=== PATIENT | male | born 1965 | race Two or more races ===

== ENCOUNTER 2020-09-27 13:36 | Outpatient (REF) | payer OTHER, SELFPAY | END 2020-09-27 13:37 | disposition home or self-care (01) | LOC: HO.LAB 13:36 | PROVIDERS: PCP Internal Medicine; Visit Provider Internal Medicine | DX: Z20.828 Contact with and (suspected) exposure to other viral communicable diseases (principal) | CPT/HCPCS: U0003 ==

== ENCOUNTER 2020-10-31 03:49 | Emergency (ER) | payer OTHER, SELFPAY ==
[2020-10-31 03:55] VITALS: BP 133/95; PULSE 82; RESP 16; TEMP 37.1; O2SAT 97; BMI 27.1
--- NOTE | 2020-10-31 04:19 | ED.GENADULT ---
HPI - General Adult General Chief complaint: General Medical Stated complaint: Flu? Time Seen by Provider: 10/31/20 04:09 History of Present Illness HPI narrative: Patient is a 55-year-old male positive diarrhea positive generalized malaise positive congestion. Patient took a dose of Tylenol. Subsequently at work patient was told to go home and get tested for coronavirus. Patient denies any coughing. No change in smell or taste. 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 No history of diabetes, hypertension, mi, family history of GA. Related Data Allergies Allergy/AdvReac Type Severity Reaction Status Date / Time aspirin [ASA] Allergy Unknown HIVES Verified 10/31/20 03:55 Review of Systems Review of Systems: Constitutional: No Weight loss, No Fever, No Chills, No Night Sweats, No Fatigue, No Malaise ENT/Mouth: No Hearing loss, No Ear Pain, No Nasal Congestion, No Sinus Pain, No Hoarseness, No sore throat, No Rhinorrhea, No Swallowing Difficulty Eyes: No Eye Pain, No Swelling, No Redness, No Foreign Body, No Discharge, No Vision Changes Cardiovascular: No Chest Pain, No SOB, No Dyspnea on Exertion, No Orthopnea, No Edema, No Palpitations Respiratory: No Cough, No Sputum, No Wheezing, No Smoke Exposure, No Dyspnea Gastrointestinal: No Nausea, No Vomiting, Positive Diarrhea, No Constipation, No abdominal Pain, No Hematochezia, No Melena Genitourinary: no irregular bleeding, No Dysuria, No Urinary Frequency, No Hematuria, No Urinary Incontinence, No Urgency, No Flank Pain, No Urinary Flow Changes, No Hesitancy Musculoskeletal: No joint pain, No Myalgias, No Joint Swelling Skin: No Skin Lesions, No rash Neuro: No Weakness, No Numbness, No Paresthesias, No Loss of Consciousness, No Dizziness, No Headache Psych: No Anxiety/Panic, No Depression, No SI/HI/AH/VH, No Social Issues, Heme/Lymph: No Bruising, No Bleeding,No Lymphadenopathy Endocrine: No Polyuria, No Polydipsia, No Temperature Intolerance PMFSH Past Medical History Attestation statement: The following information was validated with the patient. Medical History No known health problems Social History Social History Advance Directives: No Physical Exam Vital Signs: Vital Signs: Last Vital Signs Temp 98.7 F 10/31/20 03:55 Pulse 82 10/31/20 03:55 Resp 16 10/31/20 03:55 BP 133/95 H 10/31/20 03:55 Pulse Ox 97 10/31/20 03:55 Body Mass Index 27.1 Appearance: Alert. Oriented X3. No acute distress. Eyes: Pupils equal, round and reactive to light. ENT: Pharynx normal. Neck: Normal inspection. Neck supple. No lymph nodes noted. No crepitus CVS: Normal heart rate and rhythm. Pulses normal. Normal S1 and S2 Respiratory: No respiratory distress. Breath sounds normal. No Wheezing. No rales Abdomen: Soft and nontender. No rigidity. No distention. good BS x4 Skin: Skin warm and dry. Normal skin color. Normal skin turgor. Extremities: No lower extremity edema. Neurovascular intact to all extremities. No Lacerations. No Rash Neuro: Oriented X 3. No motor deficit. No sensory deficit. Moving all extermities. No slurred speech Medical Decision Making MDM Narrative Medical decision making narrative: patient well-appearing no acute distress O2 sat is 97% on room air. Lungs are clear. Will discharge patient home a coronavirus test was sent. Will ask patient to follow strict home quarantine until all symptom has resolved For least 24 hours. Currently stable condition. Discharge Plan Discharge Clinical Impression: Acute upper respiratory infection, COVID-19 Patient Disposition: Home, Self-Care Instructions: COVID-19 (Coronavirus Disease 2019) (ED), Upper Respiratory Infection (ED) Additional Instructions: The risk of Coronavirus 19 exists. Please closely follow-up on an outpatient basis. Please follow strict home quarantine until all symptoms has resolved for at least 24 hours. A coronavirus test was sent in her behalf. Referrals: Physician,Unknown [Primary Care Provider] - 2 days
== END 2020-10-31 04:31 | disposition home or self-care (01) ==
PROVIDERS: Emergency Provider Emergency Medicine Emergency Medical Services
DX: U07.1 COVID-19 (principal)
CPT/HCPCS: 99283; U0003

== ENCOUNTER 2021-11-26 09:10 | Outpatient (REF) | payer OTHER, SELFPAY ==
[2021-11-26 09:52] LABS: COVID-19 Test Negative (Negative); IDNOW Serial# 55D5AD1C
== END 2021-11-26 09:11 | disposition home or self-care (01) ==
LOC: HO.LAB 09:10
PROVIDERS: Visit Provider Internal Medicine
DX: Z20.822 Contact with and (suspected) exposure to COVID-19 (principal)
CPT/HCPCS: 36415; 87635; C9803

== ENCOUNTER 2024-10-21 03:41 | Emergency (ER) | payer OTHER, SELFPAY ==
[2024-10-21 03:43] VITALS: BP 126/76; PULSE 67; RESP 18; TEMP 37.1; O2SAT 100; BMI 20.8
[2024-10-21] MEDS: cephALEXin 500 MG CAPSULE PO (03:58)
[2024-10-21] MEDS: predniSONE 20 MG TABLET 40 MG PO (03:58)
--- NOTE | 2024-10-21 04:01 | ED.EXTPRO ---
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 he has no numbness or weakness. he denies trauma, injections, fevers. He notes tonight it was too painful to work MD Complaint: joint swelling Onset (ago): day(s) (few) Pain Consistency: constant Location: right and upper extremity Quality: aching Radiation: none Relieving factors: immobilization Exacerbating factors: range of motion and palpation Associated symptoms: denies other symptoms Context: other (overuse) Related Data Previous Rx's ?Medication ?Instructions ?Recorded cephalexin 500 mg capsule 500 mg PO QID 7 days #28 caps 10/21/24 prednisone 20 mg tablet 40 mg (2 x 20 mg) PO DAILY 4 days 10/21/24 #8 tabs Allergies Allergy/AdvReac Type Severity Reaction Status Date / Time aspirin [ASA] Allergy Unknown HIVES Verified 10/21/24 03:45 Review of Systems Review of Systems: Constitutional : No Fever, No Chills ENT/Mouth : No Ear Pain, No Hoarseness, No sore throat Eyes: No Eye Pain, No Swelling, No Redness, No Foreign Body Cardiovascular : No Chest Pain, No SOB Respiratory : No Cough, No Dyspnea Gastrointestinal : No Nausea, No Vomiting, No Diarrhea, No abdominal Pain Genitourinary : No Dysuria, No Hematuria Musculoskeletal : positive joint pain, No Myalgias, pos Joint Swelling Skin : No Skin lacerations, No rash Neuro : No Weakness, No Numbness, No Loss of Consciousness, No Dizziness, No Headache All other systems reviewed and are negative PMFSH Past Medical History Attestation statement: The following information was validated with the patient. Source: old records reviewed Medical History No known health problems Social History Social History Unable to assess alcohol history related to: Unknown Use of substances other than those prescribed or required for medical reasons: No Do you have a plan to hurt others: No Plan Physical Exam Vital Signs: Vital Signs: Last Vital Signs Temp 98.8 F 10/21/24 03:43 Pulse 67 10/21/24 03:43 Resp 18 10/21/24 03:43 BP 126/76 10/21/24 03:43 Pulse Ox 100 10/21/24 03:43 O2 Del Method Room Air 10/21/24 03:43 BMI result Body Mass Index 20.8 Appearance: Alert. Oriented X3. No acute distress. Eyes: Pupils equal, round and reactive to light. ENT: Pharynx normal. Neck: Normal inspection. Neck supple. CVS: Normal heart rate and rhythm. Pulses normal. Respiratory: No respiratory distress. Breath sounds normal. Abdomen: Soft and nontender. Skin: Skin warm and dry. Normal skin color. Normal skin turgor. Extremities: No lower extremity edema. R hand NV intact, mild swelling near wrist with mild erythema but no warmth - no joint effusion. + idris test. Neuro: Oriented X 3. No motor deficit. No sensory deficit. Medications Administered Discontinued Medications Generic Name Dose Route Start Last Admin Trade Name Freq PRN Reason Stop Dose Admin Cephalexin HCl 500 mg 10/21/24 03:54 10/21/24 03:58 Cephalexin 500 Mg Capsule PO 10/21/24 03:55 500 mg ONCE ONE Administration Prednisone 40 mg 10/21/24 03:54 10/21/24 03:58 Prednisone 20 Mg Tablet PO 10/21/24 03:55 40 mg ONCE ONE Administration Medical Decision Making Medical Decision Making MDM Narrative: 59 yo male no sig PMH R hand dominant here with R wrist pain and swelling there is mild erythema at this time will place in splint - could be gout (less likely), early cellulitis (PO cephalexin ordered), more likely tendonitis. Splint ordered. Reasons to return given Differential Diagnosis Differential Diagnoses: The differential diagnosis associated with the presentation includes tendonitis, gout, skin infection Prescription Management I considered prescription management with: Pain Medication and Antibiotic Procedures Orthopedic Splinting/Casting Injury #1: Side: right Upper Extremity Injury Location: wrist Upper Extremity Immobilizer: wrist splint Discharge Plan Discharge Clinical Impression: Tendonitis Patient Disposition: Home, Self-Care Instructions: Tendinitis (ED) Additional Instructions: return for any worsening symptoms - increased redness, swelling, numbness, weakness wear splint for 10 days finish medications if your symptoms worsen you will need an ultrasound please return Prescriptions: New cephalexin 500 mg capsule 500 mg PO QID 7 Days Qty: 28 0RF prednisone 20 mg tablet 40 mg PO DAILY 4 Days Qty: 8 0RF Stand Alone Forms: Work/School Release Print Language: [place] Islander
[2024-10-21 04:11] VITALS: BP 126/76; PULSE 67; RESP 18; TEMP 37.1; O2SAT 100
== END 2024-10-21 04:15 | disposition home or self-care (01) ==
LOC: HO.ED 04:12
PROVIDERS: Emergency Provider Emergency Medicine; PCP Internal Medicine
DX: M25.431 Effusion, right wrist (principal); M65.241 Calcific tendinitis, right hand; M25.531 Pain in right wrist
CPT/HCPCS: 29125; 99283; 99284

== ENCOUNTER 2025-11-25 08:45 | Emergency (ER) | payer OTHER, SELFPAY ==
--- NOTE | ~2025-11-25 | XR_ITS ---
EXAMINATION: XR ELBOW 3 VIEWS RIGHT, XR ELBOW 3 VIEWS LEFT HISTORY: fall COMPARISON: Comparison is made with the prior examination of the left elbow dated 01/24/2017. FINDINGS: Six views of the bilateral elbows are submitted. Osseous mineralization is normal. There is no fracture or dislocation. The joint spaces are preserved. The soft tissues are unremarkable. There is no joint effusion. XR/XR elbow RT min 3V IMPRESSION: Unremarkable examination of the bilateral elbows. Electronically signed by: Noel Quintanilla MD 11/25/2025 09:31 AM [facility]
--- NOTE | ~2025-11-25 | CT_ITS ---
EXAMINATION: CT CERVICAL SPINE WITHOUT CONTRAST CLINICAL INFORMATION: Fall with head strike. COMPARISON: None available. TECHNIQUE: Spiral CT imaging of the cervical spine performed in axial plane without contrast. Multiplanar reformatted images were constructed from the axial data set. This CT examination was performed using dose optimization techniques as appropriate, variously including the following: *Automated exposure control *Adjustment of mA and/or kV according to patient size (this includes techniques or standardized protocols for targeted exams where dose is matched to indication/reason for exam; i.e. extremities or head) *Use of iterative reconstruction technique FINDINGS: CORONAL ALIGNMENT: -There is a minimal left convex scoliosis, apex at C4. SAGITTAL ALIGNMENT: -Normal lordosis. No subluxations. Normal sagittal alignment. C1-C2 AND CRANIOCERVICAL JUNCTION: -Intact and normally aligned. VERTEBRAL BODIES AND FACETS: -There are no fractures, compression deformities, or suspicious bone lesions. There is no evidence of traumatic subluxation. -Normal facet alignment bilaterally. No significant facet arthrosis. DISCS: -Moderate disc degeneration present at C5-6 and C6-7. Disc spaces otherwise preserved. CENTRAL CANAL: -No evidence of high-grade central canal narrowing or large disc herniation allowing for modality limitations. PREVERTEBRAL AND PARAVERTEBRAL SOFT TISSUES: -There is no prevertebral or paravertebral soft tissue swelling or edema. No abnormal fluid collection. -Mild carotid bulb calcifications bilaterally. -No mass or abnormal lymph nodes within the neck. -Normal-appearing thyroid. LUNG APICES: -Emphysematous changes in the apices with bullous changes right greater than left. No pneumothorax. CT/CT cervical spine wo IV con IMPRESSION: 1. No CT evidence of acute cervical spine fracture or injury. 2. Emphysematous changes in the lung apices. Electronically signed by: Karl Conklin MD 11/25/2025 09:41 AM [facility]
--- NOTE | ~2025-11-25 | CT_ITS ---
EXAMINATION: CT HEAD WITHOUT IV CONTRAST HISTORY: fall with head strike. TECHNIQUE: Unenhanced helical CT of the head was performed per standard departmental protocol. Coronal and sagittal reformats of the head were also evaluated. One or more of the following techniques was used for dose reduction: Automated exposure control, adjustment of the mA and/or kV according to patient size, use of iterative reconstruction technique. DLP: 663 mGy-cm COMPARISON: Comparison is made with the prior examination dated 07/15/2015. FINDINGS: BRAIN: The patient is status post left suboccipital craniotomy. Encephalomalacia in the left cerebellum may be postsurgical in nature. They/white differentiation is otherwise normal. There is no mass effect or midline shift. No intra- or extra-axial fluid collections are identified. SINUSES: The visualized paranasal sinuses are clear. The mastoid air cells and middle ear cavities are well pneumatized. ORBITS: The visualized orbits are unremarkable. BONES/SOFT TISSUES: The extracranial soft tissues are unremarkable. The calvarium is intact. No suspicious lytic or sclerotic lesions. CT/CT head/brain wo IV con IMPRESSION: No evidence of intracranial hemorrhage. Electronically signed by: Noel Quintanilla MD 11/25/2025 09:38 AM EST
--- NOTE | ~2025-11-25 | XR_ITS ---
EXAMINATION: XR ELBOW 3 VIEWS RIGHT, XR ELBOW 3 VIEWS LEFT HISTORY: fall COMPARISON: Comparison is made with the prior examination of the left elbow dated 01/24/2017. FINDINGS: Six views of the bilateral elbows are submitted. Osseous mineralization is normal. There is no fracture or dislocation. The joint spaces are preserved. The soft tissues are unremarkable. There is no joint effusion. XR/XR elbow LT min 3V IMPRESSION: Unremarkable examination of the bilateral elbows. Electronically signed by: Noel Quintanilla MD 11/25/2025 09:31 AM [facility]
[2025-11-25 08:51] VITALS: BP 112/73; PULSE 82; RESP 16; TEMP 36.8; O2SAT 99; BMI 21.3
--- NOTE | 2025-11-25 09:40 | ED_ITS ---
HPI - Fall General Chief Complaint: Fall Stated Complaint: fell t-1, head/ elbow pain Time Seen by Provider: 11/25/25 09:08 Source: patient Mode of arrival: ambulatory Limitations: no limitations History of Present Illness ED Provider: TOOTIE NUNEZ PA-C HPI Narrative: 60 year old male presents to the ED today for evaluation s/p slip and fall on ice yesterday. He reports falling back, striking the back of his head on a ramp. No LOC, no thinners. Reports landing on his back/bilateral elbows. He was able to stand and ambulate afterwards. Admits to nausea without vomiting this morning. At present, complains of a mild headache and bilateral elbow pain. Denies dizziness, chest pain, shortness of breath, back pain, numbness/tingling/weakness of the lower extremities, saddle anesthesia, bowel or bladder incontinence or retention. Related Data Previous Rx's ?Medication ?Instructions ?Recorded cephalexin 500 mg capsule 500 mg PO QID 7 days #28 cap s 10/21/24 prednisone 20 mg tablet 40 mg (2 x 20 mg) PO DAILY 4 days 10/21/24 #8 tabs Allergies Allergy/AdvReac Type Severity Reaction Status Date / Time aspirin (ASA) Allergy Unknown HIVES Verified 10/21/24 03:45 some antibiotics Allergy Unknown Uncoded 11/25/25 08:51 Review of Systems Review of Systems: Yes all other systems are reviewed and are negative PMFSH Past Medical History Attestation statement: The following information was validated with the patient. Source: old records reviewed and nursing notes reviewed Medical History No known health problems Social History Social History Advance Directives: No Advance Directives Information Provided: Yes Physical Exam Vital Signs: Vital Signs: Last Vital Signs Temp 98.2 F 11/25/25 08:51 Pulse 82 11/25/25 08:51 Resp 16 11/25/25 08:51 BP 112/73 11/25/25 08:51 Pulse Ox 99 11/25/25 08:51 O2 Del Method Room Air 11/25/25 08:51 BMI result Body Mass Index 21.3 vital signs stable General: Well appearing, in no acute distress. Skin: Warm, dry, intact. No rashes or lesions. Head: Normocephalic, atraumatic. no raccoon eyes or battles sign. no palpable hematoma or skull fracture. EENT: Hearing is intact b/l. Conjunctiva clear. PERRLA. EOM intact. Moist mucous membranes.? Neck: no midline spinous tenderness or step off deformity, FROM intact throughout Cardiac: Chest wall symmetric. RRR Lungs: Normal respiratory effort without accessory muscle use. CTA bilaterally. No rales, rhonchi, or wheezes.? Abdomen: Soft, non-tender, non-distended. No rebound tenderness or guarding. Positive BS x4. Back: No midline spinous or paraspinal tenderness. No step off deformity. Ext: Upper and lower extremities atraumatic, without tenderness, deformity, swelling or erythema, FROM intact to all extremities Neuro: AOx3. Normal speech. NIH 0. Strength 5/5 intact throughout. No saddle anesthesia. Sensation intact to light touch. NV intact distally. Ambulating with steady gait Course Course Course Narrative: ct head/ c spine unremarkable. xr b/l elbows without fracture. Discussed work up results with patient. tylenol given in ED. Advised concussion protocol along with tylenol/motrin at home. Patient has remained stable throughout ED visit today. Discussed worrisome signs and symptoms and when to return to the ED. All questions answered at this time. Patient is agreeable with disposition and stable for discharge. Medical Decision Making Medical Decision Making [facility] Narrative: 60 year old male presents to the ED today for evaluation s/p slip and fall on ice yesterday. Differential diagnosis includes concussion, closed head injury, ICH, cervical MSK sprain/strain, fracture, elbow fracture, contusion Plan for imaging. Tylenol ordered for pain. Plan for re-eval. Differential Diagnosis Differential Diagnoses: The differential diagnosis associated with the presentation includes as above. Admission/Observation not indicated. Independent Interpretation I performed an independent interpretation of an: CT Scan Interpretation: ct head/brain without bleed or mass ct cervical spine without fracture xr b/l elbows without fracture Radiology Impression Discussion of test interpretation with radiology: I have reviewed the radiolo [facility]'s reading. Radiologist Impression: Procedure(s): XR elbow LT min 3V Accession Number(s): [id number] cc: Dain Pitts MD; Tootie Nunez~ Reason for Exam: fall EXAMINATION: XR ELBOW 3 VIEWS RIGHT, XR ELBOW 3 VIEWS LEFT HISTORY: fall COMPARISON: Comparison is made with the prior examination of the left elbow dated 01/24/2017. FINDINGS: Six views of the bilateral elbows are submitted. Osseous mineralization is normal. There is no fracture or dislocation. The joint spaces are preserved. The soft tissues are unremarkable. There is no joint effusion. XR/XR elbow LT min 3V IMPRESSION: Unremarkable examination of the bilateral elbows. Electronically signed by: Noel Quintanilla MD 11/25/2025 09:31 AM EST RP Date of Service: 11/25/25 Procedure(s): XR elbow RT min 3V Accession Number(s): [id number] cc: Dain Pitts MD; Tootie Nunez~ Reason for Exam: fall EXAMINATION: XR ELBOW 3 VIEWS RIGHT, XR ELBOW 3 VIEWS LEFT HISTORY: fall COMPARISON: Comparison is made with the prior examination of the left elbow dated 01/24/2017. FINDINGS: Six views of the bilateral elbows are submitted. Osseous mineralization is normal. There is no fracture or dislocation. The joint spaces are preserved. The soft tissues are unremarkable. There is no joint effusion. XR/XR elbow RT min 3V IMPRESSION: Unremarkable examination of the bilateral elbows. Electronically signed by: Noel Quintanilla MD 11/25/2025 09:31 AM EST RP External Record Review External record reviewed: Inpatient record Prescription Management I considered prescription management with: Pain Medication Social Determinants Patient?s care significantly limited by Social Determinants of Health including: Other Social Determinant of Health Critical Care Time Critical Care Time Critical Care Time: No Discharge Plan Discharge Clinical Impression: Fall from slipping on ice Patient Disposition: Home, Self-Care Instructions: Concussion (ED) Additional Instructions: You were evaluated in the ED today following a fall. Your imaging is reassuring. You may have a mild concussion. See home care instructions regarding concussion protocol. Treatment for this is brain rest. Please limit screen time (i.e phone, tv, etc.) Make sure you are staying hydrated. Lay down to relax in a dark quiet room. Avoid sports until cleared by your primary doctor. I recommend you take 600mg ibuprofen every 6 hours or tylenol 650mg every 6 hours as needed for pain. If needed, you can alternate these medications so that you take one medication every 3 hours. For example, at noon take ibuprofen, then at 3pm take tylenol, then at 6pm take ibuprofen. Follow up with your primary doctor as needed. As discussed, return to the ED with any new or worsening symptoms such as intractable headache, vomiting, lethargy, worsening confusion, etc. In the case of an emergency call 911. Prescriptions: No Action cephalexin 500 mg capsule 500 mg PO QID 7 Days Qty: 28 0RF prednisone 20 mg tablet 40 mg PO DAILY 4 Days Qty: 8 0RF Referrals: Dain Pitts MD [Primary Care Provider, Internal Medicine] Print Language: Citizen Of [place]
--- OUTSIDE RECORDS SUMMARY | 2025-11-25 10:14 | XMS_ITS | Clinical Summary ---
Author Organization [facility] Address [address] [address] Phone Care Team Providers Care Flat Clothier Name Role Phone Dain Pitts Primary Care Provider [phone] Allergies Active Allergy Reactions Criticality Noted Date Comments Aspirin 02/24/2019 Medications valACYclovir (VALTREX) 1000 MG tablet Take 1 tablet (1,000 mg total) by mouth 3 (three) times a day. 21 tablet 9 Active Additional Information Patient not taking.Reported on 05/17/2019 cyclobenzaprine (FLEXERIL) 10 MG tablet Take 1 tablet (10 mg total) by mouth 3 (three) times a day as needed. 15 tablet 1 Active Active Problems No known active problems Social History Tobacco Use Types Packs/Day Years Used Date Smoking Tobacco: Former Cigarettes Smokeless Tobacco: Never Tobacco Cessation:Counseling Given: Not Answered Alcohol Use Standard Drinks/Week Comments Not Currently 0 (1 standard drink = 0.6 oz pur e alcohol) Education Answer Date Recorded Are you interested in more education? Not on tong e 03/23/2023 Are you concerned about learning? Not on file 03/23/2023 No 03/23/2023 No 03/23/2023 Food Answer Date Recorded Within the past 6 months we worried whether our food would run out before we got money to buy more. I choose not to answer 04/25/2025 Within the past 6 months the food we bought just didn't last and we didn't have enough money to get more. I choose not to answer 04/25/2025 Residential Stability Answer Date Recor ded What is your housing situation today? I choose n ot to answer 04/25/2025 How many times have you move d in the past 12 months? I choose not to answer 04/25/2025 Paying for Meds Answer Date Recorded Do you have trouble paying for medicines? I ham[place] se not to answer 04/25/2025 Paying Utility Bills Answer Date Record ed Do you have trouble paying y our heating or electricity bill? I choose not to answer 04/25/2025 Transportation Answer Date Recorded Has the lack of transportati on kept you from medical appointments or from getting medications? No 04/25/2025 Digital Access Answer Date Recorded No 04/25/2025 No 04/25/2025 Do you have reliable internet access at home? I choose not to answer 04/25/2025 Do you have a device (e.g., phone, tablet, computer) with a working camera? I choose not to answer 04/25/2025 Intimate Partner Violence Answer Date R ecorded Are you denied basic needs s uch as food, clothing, or medical care? No 04/25/2025 In the past 12 months have y ou been in a relationship with a person who hurts, threatens, or tries to control you? No 04/25/2025 Are you denied basic needs s uch as food, clothing, or medical care? No 04/25/2025 In the past 12 months have y ou been in a relationship with a person who hurts, threatens, or tries to control you? No 04/25/2025 Sex and Gender Information Value Date Recorded Sex Assigned at Male 02/24/2019 12:46 PM EDT Legal Sex Male 9:40 PM EDT Gender Identity Male 02/24/2019 12:46 PM EDT Sexual Orientation Choose not to disclose 2018 10:09 AM EDT Last Filed Vital Signs Vital Sign Reading Time Taken Comments Blood Pressure 127/78 04/25/2025 9:57 AM EDT Pulse 57 04/25/2025 9:57 AM EDT Temperature 36.2 C (97.2 F) 04/25/2025 9:57 AM EDT Respiratory Rate 16 04/25/2025 9:57 AM EDT Oxygen Saturation 98% 04/25/2025 9:57 AM EDT Inhaled Oxygen Concentration - - Weight 63.5 kg (140 lb) 04/25/2025 6:19 AM EDT Height 180.3 cm (5' 11 ) 04/25/2025 6:19 AM EDT Body Mass Index 19.53 04/25/2025 6:19 AM EDT Plan of Treatment Health Maintenance Due Date Last Done Comments Adult Td,Tdap Booster 1966 LIPID PANEL 1966 DEPRESSION SCREENING 1978 SMOKING Hx and SMOKELESS TOB ACCO SCREENING 1979 HEPATITIS C SCREENING 1984 HIV ONE-TIME SCREENING (18-6 5 YEARS) 1984 COLOGUARD 2011 COLONOSCOPY 2011 COLORECTAL CANCER SCREENING 2011 FIT TEST 2011 FOBT 2011 SIGMOIDOSCOPY 2011 VIRTUAL COLONOSCOPY 2011 PNEUMOCOCCAL VACCINES (50+ y ears) (1 of 1 - PCV) 2016 ZOSTER VACCINES (1 of 2) 2016 INFLUENZA VACCINE (#1) 2025 COVID-19 VACCINE (1 - 2024-2 6 season) 2025 RSV VACCINE (1 - 1-dose 75+ series) 2041 HEPATITIS A VACCINES Aged Out No long er eligible based on patient's age to complete this topic HIB VACCINES Aged Out No longer eligi ble based on patient's age to complete this topic MENINGOCOCCAL VACCINES (ACWY) Aged Out No longer eligible based on patient's age to complete this topic MENINGOCOCCAL VACCINES (B) Aged Out N o longer eligible based on patient's age to complete this topic Medical Devices Not on file Insurance [employer] HMO [place] [address] [place], [place] [id number] [place] [address] [place], [place] [id number] [facility] Care Teams Flat Clothier Relationship Specialty Start Date End Date Dain Pitts DO [address] [place] [address] PCP - General Internal Medicine 02/24/25 Additional Source Comments The information contained in this document represents components of the legal health record. It is not the complete legal health record.[facility]
--- OUTSIDE RECORDS SUMMARY | 2025-11-25 10:14 | XMS_ITS | Data Portability ---
Author Organization [facility] Telehealth Patient Home Address [address] [facility] [place] [address] Assessment No assessment recorded. Plan of Treatment Reminders Order Date Submit Date Provider Last Modified By Organization Details Last Modified Time Details Appointments None recorded. Lab None recorded. Referral None recorded. Procedures None recorded. Surgeries None recorded. Imaging None recorded. Medication Orders nicotine 21 mg/24 hr daily transdermal patch 2022 023 [place] [id number], [address] [facility], [place], [address], 15:09:27 Patient TargetsNo targets recorded. Patient Instructions Encounter Date Encounter Id Patient Instructions Last Modified By Organization Details Last Modified Time 02/07/2023 [id number] smoking cessatio n counseling, greater than 3 minutes up to 10 minutes* [email or web address] Not available 02/07/2023 15:09:24 Reason for Referral None Reported. Results Created Date Observation Date Name Description Value Unit Range Abnormal Flag Note LastModifiedBy Organization Detail LastModifiedTime 11/25/2011/25/2025 imagi ng/di agnos tic resul t No observ ation record ed. [facility] (Medical Records) [address] [place], [address], 11/25/2025 09:36:12 11/25/2011/25/2025 imagi ng/di agnos tic resul t No observ ation record ed. [facility] (Medical Records) [address] [place], [address], 11/25/2025 09:37:36 11/25/2011/25/2025 imagi ng/di agnos tic resul t No observ ation record ed. [facility] (Medical Records) [address] [place], [address], 11/25/2025 09:42:54 11/25/20 25 11/25/2025 imagi ng/di agnos tic resul t No observ ation record ed. [facility] (Medical Records) [address] [place], [address], 11/25/2025 09:45:57 11/25/20 25 11/25/2025 imagi ng/di agnos tic resul t No observ ation record ed. [facility] (Medical Records) [address] [place], [address], 11/25/2025 09:46:57 Result Notes None recorded. 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 Active 2022 JADA LOUIE [address] [place] [address], [phone], [facility] 3 15:02:16 Primary malignant neoplasm of lung 61935601 Active 2022 JADA LOUIE [address] [place] [address], [phone], [facility] 3 15:02:49 Mass lesion of brain 833296763 Active 2022 JADA LOUIE [address] [place] [address], [phone], [facility] 3 15:02:59 Tobacco dependence syndrome 17011805 Active 2022 JADA LOUIE [address] [place] [address], [phone], [facility] 3 15:03:08 Alcohol dependence 39997949 Active 2022 JADA LOUIE [address] [place] [address], [phone], [facility] 3 15:03:24 Problem Notes None recorded. Procedures Surgical History Date Name Laterality Status Provider Name and Address Organization Details Recorded Time 5 Colonoscopy completed Ramón Gisselle [facility] 09/30/2025 09:52:17 Imaging Results None recorded. Procedure Notes None recorded. Medical Equipment None Reported. Allergies Allergen ID Allergen Name Allergen Category Reaction Reaction Severity Criticality Documentation Date Start Date Code Code System Note Provider Name and Address Organization Details Recorded Time 65 aspirin medicatio n hives Not available Not available 02/07/2023 1191 RxNorm Ronel stallworth [facility] 3 15:00:53 Medications Name Sig Start Date Stop Date Status Note LastModified by Organization Details LastModified Time nicotine 21 mg/24 hr daily transdermal patch Apply 1 patch every day by transdermal route for 42 days. 2022 active Not Available Not Available Not Avai lable Vitals Date Recorded Body height Body mass index (BMI) Body weight Oxygen saturation Heart rate Systolic And Diastolic Provider Name and Address Organization Details Last Updated DateTime 3 179.83 cm 25.7 kg/m2 98598.2 g 98 % 68 /min 110/68 mm[Hg] Ronel Kearns [facility] 3 15:02:18 Social History Question Answer Notes LastModified by Organizat ion Details LastModified Time Tobacco Smoking Status Former Smoker Over 20 years of smoking history Ronel stallworth [facility] 02/07/2023 15:01:19 What Was The Date Of Your Most Recent Tobacco Screening? 02/07/2023 [email or web address] Information not available 02/07/2023 Sex: Unknown Functional Status None recorded. Mental Status None recorded. Family History Nothing Reported. Medical History No medical history recorded. Past Encounters Encounter ID Performer Location Encounter Start Date Encounter Closed Date Diagnosis/Indication Diagnosis SNOMED-CT Code Diagnosis ICD10 Code Diagnosis IMO Codes Diagnosis Note [id number] Dain Pitts DO [facility] [address] [facility] [address] 02/07/2023 14:54:38 02/07/2023 17:06:12 Primary malignant neoplasm of cerebrum 00406006 C71.0 has f/u with oncology tomorrow with Dr. Persaud (through [facility]) Primary ma lignant neoplasm of lung 89555099 C34.[address] 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)has PET scan Alcohol dependence 49914 003 F10.20 the patient reports that he hasn't been smoking or drinking Health Concerns Section Related Observation LastModified by Organization Detai ls LastModified Time None Recorded Concern Status LastModified by Organization Details LastModified Time None Recorded Advance Directives Directive None Recorded Payers Insurance Date Sequence Insurance Name Policy Number Policy Martinez Covered Member ID Martinez Member ID Guarantor Name 03/20/2025 1 [employer] (EPO) [id number] Wellington Monroy [id number] Wellington Monroy Notes Date Note Type Note Provider Name a nd Address Organization Details Recorded Time 02/07/2023 text/html ROS as noted in the [facility] f/u patient presented to ER due recent fall with head injuryPMH significant for alcohol use disorder, tobacco dependence, marijuana useron CT the patient was found to have an enhancing lesion of his left cerebellum due to metastatic disease(emergency neurosurg performed for tumor removal)further eval found pt to have right lung mass (metastatic primary disease thought to be lung cancerno complications from surgery; no neuro defects detected already has arranged oncology and neurology follow apptssuggested outpatient PT (for the falling) no new medications on boarded upon discharge TODAY: patient has not been seen in several yearstaken on by [facility] w/o records, no other records of medical management elsewhere the patient does not want PT at this time; agreed with this plan for now has a fu with oncology fu tomorrowseeing neuro for fu on 02/12 not currently taking any medswill start on the patch for the next 6 weeks will call if any concerns JADA LOUIE [address] [place] [address], [place], [phone], [facility] 02/07/2023 15:29:39
[2025-11-25 10:29] VITALS: BP 112/73; PULSE 82; RESP 16; TEMP 36.8; O2SAT 99
== END 2025-11-25 10:29 | disposition home or self-care (01) ==
PROVIDERS: Emergency Provider Emergency Medicine Emergency Medical Services; PCP Internal Medicine
DX: S06.0X0A Concussion without loss of consciousness, initial encounter (principal); M25.522 Pain in left elbow; M25.521 Pain in right elbow; W00.0XXA Fall on same level due to ice and snow, initial encounter; Y93.89 Activity, other specified; Y92.89 Other specified places as the place of occurrence of the external cause; Y99.8 Other external cause status
CPT/HCPCS: 70450; 72125; 73080; 99283; 99284

== ENCOUNTER → 2025-11-25 09:11 | Outpatient (BNV) | payer OTHER, SELFPAY | PROVIDERS: Emergency Provider Emergency Medicine Emergency Medical Services; PCP Internal Medicine; Visit Provider Radiology Diagnostic Radiology | DX: M54.2 Cervicalgia (principal); S09.90XA Unspecified injury of head, initial encounter; M25.521 Pain in right elbow; M25.522 Pain in left elbow | CPT/HCPCS: 70450; 72125; 73080 ==